=== PATIENT | male | born 1985 | race Caucasian/White ===

== ENCOUNTER 2016-06-10 20:46 | Emergency (ER) | payer OTHER ==
[2016-06-10] MEDS ORDERED: IBUPROFEN 800 MG TAB As Ordered ONE (23:44)
[2016-06-10] MEDS ORDERED: predniSONE 20 MG TAB As Ordered ONE (23:44)
[2016-06-10] MEDS ORDERED: OXYCODONE/APAP 5MG/325MG(BULK) 1 TAB TAB As Ordered ONE (23:45)
--- NOTE | 2016-06-10 23:55 | EDDOCDS ---
Nurse's Notes [facility] Name: Paul Beavers Age: 30 yrs Sex: Male : 1985 Arrival Date: 06/10/2016 Time: 20:46 Bed Triage 3 Private MD: [place] Carli [place] Diagnosis: Low back pain-Acute;Sciatica, left side;Acute pharyngitis Presentation: 06/10 20:52 Presenting complaint: Patient states: PER PT MID & LOWER BACK PAIN FOR THE PAST FEW tm5 DAYS, STATES THAT HE HAS MOVING & HAS BEEN LIFTING HEAVY OBJECTS. Acute neurological deficits are not present. Mechanism of Injury: No Mechanism of Injury. Adult Sepsis Screening: The patient does not have new or worsening altered mentation. Patient's respiratory rate is less than 22. Systolic blood pressure is greater than 100. Patient has a qSOFA score of 0- Negative Sepsis Screen. Suicide/Homicide risk assessment- the patient denies having any suicidal and/or homicidal ideations and does not present with any other emotional, behavioral or mental health complaints. Status: Patient is not a dining service inspector or dependent. Status: RETIRED. Transition of care: patient was not received from another setting of care. 20:52 Acuity: JOSE Level 4 tm5 20:52 Method Of Arrival: Walkin/Carried/Asstd tm5 Triage Assessment: 20:54 General: Appears in no apparent distress, Behavior is appropriate for age, cooperative. tm5 Pain: Location: left low back, left mid back, right mid back and right low back Pain currently is 8 out of 10 on a pain scale. Quality of pain is described as aching, throbbing. Pt Declines HIV testing. Neurological: Level of Consciousness is awake, alert, Oriented to person, place, time. Respiratory: Airway is patent Respiratory effort is even, unlabored, Respiratory pattern is regular, symmetrical. Derm: Skin is pink, warm & dry. normal. Musculoskeletal: Reports pain in left low back, left mid back, right mid back and right low back. Historical: - Allergies: no known allergies; - Home Meds: 1. gabapentin 1200 mg Oral tab 3 times per day - PMHx: L1 L2 herniated discs; - PSHx: BACK SURGERY; - Social history: Smoking status: Patient uses tobacco products, current every day smoker. No barriers to communication noted, The patient speaks fluent Cymraes. - Family history: Not pertinent. - : The pt / caregiver states he / she is not on anticoagulants. Home medication list is obtained from the patient. - Exposure Risk Screening:: None identified. Screenin:55 Screening information is obtained from the patient. Fall risk: No risks identified. tm5 Assistance ADL's: requires no assistance with activities of daily living. Abuse/DV Screen: The patient / caregiver reports he/she is: not in a situation that causes fear, pain or injury. Nutritional screening: No deficits noted. Advance Directives: Currently, there is no health care proxy. There is no active DNR order. home support is adequate. Assessment: 23:53 General: Appears in no apparent distress, comfortable, Behavior is cooperative. [facility] Vital Signs: 20:48 BP 149 / 93; Pulse 112; Resp 18 S; Temp 100.1(O); Pulse Ox 98% on R/A; Weight 117.93 kg gr2 (R); Height 6 ft. 2 in. (187.96 cm) (R); Pain 8/10; 20:48 Body Mass Index 33.38 (117.93 kg, 187.96 cm) gr2 Vitals: 20:48 Log In Time: June 10, 2016 at 20:48. gr2 23:38 Strep Screen is obtained and tested: Negative, a GATSNEG culture is ordered in [facility] and sent. ED Course: 20:48 Patient visited by Alejandro Dunham. gr2 20:48 [facility] is Private Physician. gr2 20:48 Patient moved to Waiting gr2 20:50 Patient visited by Alejandro Dunham. gr2 20:50 Patient moved to Pre RCE gr2 20:53 Triage Initiated tm5 20:54 Family accompanied patient. tm5 23:00 Patient moved to Triage 3 jrd 23:02 Christian[facility]C [facility] ef1 23:02 Delmer Li DO is Attending Physician. ef1 23:03 Patient visited by Christiana Price PA-C. ef1 23:22 Patient visited by Christiana Price PA-C. ef1 23:39 Patient visited by Christiana Price PA-C. ef1 23:39 [facility] is Referral Physician. ef1 23:39 [facility]. ef1 23:52 GATS (NEGATIVE STREP SCREEN) Sent. slm 23:53 No IV's were initiated during this patient's visit. No procedures done that require slm assistance. 23:54 Patient visited by Laura Hunt LPN. slm 23:54 The patient / caregiver is instructed regarding the plan of care and ED course. Patient slm has correct armband on for positive identification. Bed in low position. Call light in reach. Side rails up X 1. Administered Medications: 23:51 Drug: oxyCODONE-acetaminophen 4 pack 1 packets [oxycodone-acetaminophen 5 mg-325 mg slm tablet (1 tabs)] {Co-Signature: af2 (Iveth Roberson RN).} Route: PO; 23:52 Drug: Ibuprofen 800 mg [ibuprofen 800 mg tablet (1 tabs)] Route: PO; slm 23:53 Drug: predniSONE 60 mg [prednisone 20 mg tablet (3 tabs)] Route: PO; slm Order Results: There are currently no results for this order. Outcome: 23:39 Discharge ordered by Provider. ef1 23:53 Discharge Assessment: Patient awake, alert and oriented x 3. No cognitive and/or slm functional deficits noted. Patient verbalized understanding of disposition instructions. patient administered narcotics - no. The following High Risk Discharge criteria are identified: None. Discharged to home ambulatory. Condition: good. Discharge instructions given to patient, Instructed on discharge instructions, follow up and referral plans. medication usage, no driving heavy equipment, Demonstrated understanding of instructions, medications, Pt was receptive of discharge instructions/ teaching. Prescriptions given X 4. No special radiology studies were completed. Property :Personal belongings accompany Pt. 23:54 Patient left the ED. slm Signatures: Christiana Price, VELASQUEZC PADeirdreC ef1 Alejandro Dunham gr2 Laura Hunt LPN LPN slm Branden Foremna, BIOLOGICS SPECIALIST BIOLOGICS SPECIALIST Sonia Purcell,RN RN tm5 Iveth Roberson RN af2 MTDD
--- NOTE | 2016-06-10 23:55 | EDDOCDS ---
Physician Documentation [facility] Name: Paul Beavers Age: 30 yrs Sex: Male : 1985 Arrival Date: 06/10/2016 Time: 20:46 Bed Triage 3 Private MD: [facility], [place] Disposition: 06/10/16 23:39 Discharged to Home/Self Care. Impression: Low back pain - Acute, Sciatica, left side, Acute pharyngitis. - Condition is Stable. - Discharge Instructions: Back Pain, Adult, Yway-lt-Haql, Sciatica, Rtlw-vu-Kqxg, Pharyngitis, Dtjb-[id number]-[id number]. - Prescriptions for Prednisone 20 mg Oral Tablet - take 3 tablet by ORAL route once daily for 5 days; 15 tablet. Zanaflex 4 mg Oral Tablet - take 1 tablet by ORAL route every 8 hours As needed Will cause drowsiness, do not take while driving/operating heavy machinery.; 20 tablet. Mobic 7.5 mg Oral Tablet - take 1 tablet by ORAL route once daily take with food; 20 tablet. Percocet 5- 325 mg Oral Tablet - take 1 tablet by ORAL route every 6 hours As needed MDD: 4 tabs; 20 tablet. - Medication Reconciliation, Local Pharmacy Hours form. - Follow up: [facility]; When: 1 - 2 days; Reason: Recheck today's complaints, Continuance of care. Follow up: Emergency Department; Reason: Worsening of conditions. Follow up: [facility]; When: Call to arrange an appointment; Reason: Further diagnostic work-up, Recheck today's complaints, Continuance of care. - Problem is new. - Symptoms have improved. Historical: - Allergies: no known allergies; - Home Meds: 1. gabapentin 1200 mg Oral tab 3 times per day - PMHx: L1 L2 herniated discs; - PSHx: BACK SURGERY; - Social history: Smoking status: Patient uses tobacco products, current every day smoker. No barriers to communication noted, The patient speaks fluent [place]. - Family history: Not pertinent. - : The pt / caregiver states he / she is not on anticoagulants. Home medication list is obtained from the patient. - Exposure Risk Screening:: None identified. Vital Signs: 06/10 20:48 BP 149 / 93; Pulse 112; Resp 18 S; Temp 100.1(O); Pulse Ox 98% on R/A; Weight 117.93 kg gr2 / 259.99 lbs (R); Height 6 ft. 2 in. (187.96 cm) (R); Pain 8/10; 20:48 Body Mass Index 33.38 (117.93 kg, 187.96 cm) gr2 MDM: 22:10 Spine. Lumbosacral, Complete Ordered. EDMS 23:23 oxyCODONE-acetaminophen 4 pack 5 mg-325 mg 1 packets PO once; Dispense with pt, take as ef1 per instruction on package ordered. 23:23 predniSONE 60 mg PO once; administer with food or milk ordered. ef1 23:25 Strep Screen, Nursing ordered. ef1 23:28 Ibuprofen 800 mg PO once ordered. ef1 23:40 GATS (NEGATIVE STREP SCREEN) Ordered. EDMS Administered Medications: 23:51 Drug: oxyCODONE-acetaminophen 4 pack 1 packets [oxycodone-acetaminophen 5 mg-325 mg slm tablet (1 tabs)] {Co-Signature: af2 (Iveth Roberson RN).} Route: PO; 23:52 Drug: Ibuprofen 800 mg [ibuprofen 800 mg tablet (1 tabs)] Route: PO; slm 23:53 Drug: predniSONE 60 mg [prednisone 20 mg tablet (3 tabs)] Route: PO; slm Signatures: Dispatcher [employer] EDMS Christiana Price, JAKOB ROBERT ef1 Laura Hunt,AMANDA LINER INSTALLER slm Sonia Stone RN RN tm5 Iveth Roberson RN af2 MTDD
--- NOTE | 2016-06-11 02:03 | REP ---
Clinical: Trauma . Technique: AP, lateral, bilateral oblique, and coned-down views. Findings: Alignment and lordosis is maintained. The vertebral bodies including transverse process and spinous processes are intact and normal. There is no evidence for acute fracture / compression injury or subluxation. No evidence for spondylolysis or spondylolisthesis. No significant degenerative change is noted. Impression: Normal lumbosacral spine radiograph series. Signed by Jaime Eid MD 06/11/2016 01:54 A
--- NOTE | 2016-06-13 00:55 | EDDOCDS ---
Nurse's Notes [facility] Name: Paul Beavers Age: 30 yrs Sex: Male : 1985 Arrival Date: 06/10/2016 Time: 20:46 Bed Triage 3 Private MD: [place] Carli Jackson Diagnosis: Low back pain-Acute;Sciatica, left side;Acute pharyngitis Presentation: 06/10 20:52 Presenting complaint: Patient states: PER PT MID & LOWER BACK PAIN FOR THE PAST FEW tm5 DAYS, STATES THAT HE HAS MOVING & HAS BEEN LIFTING HEAVY OBJECTS. Acute neurological deficits are not present. Mechanism of Injury: No Mechanism of Injury. Adult Sepsis Screening: The patient does not have new or worsening altered mentation. Patient's respiratory rate is less than 22. Systolic blood pressure is greater than 100. Patient has a qSOFA score of 0- Negative Sepsis Screen. Suicide/Homicide risk assessment- the patient denies having any suicidal and/or homicidal ideations and does not present with any other emotional, behavioral or mental health complaints. Status: Patient is not a on site services specialist or dependent. Status: RETIRED. Transition of care: patient was not received from another setting of care. 20:52 Acuity: JOSE Level 4 tm5 20:52 Method Of Arrival: Walkin/Carried/Asstd tm5 Triage Assessment: 20:54 General: Appears in no apparent distress, Behavior is appropriate for age, cooperative. tm5 Pain: Location: left low back, left mid back, right mid back and right low back Pain currently is 8 out of 10 on a pain scale. Quality of pain is described as aching, throbbing. Pt Declines HIV testing. Neurological: Level of Consciousness is awake, alert, Oriented to person, place, time. Respiratory: Airway is patent Respiratory effort is even, unlabored, Respiratory pattern is regular, symmetrical. Derm: Skin is pink, warm & dry. normal. Musculoskeletal: Reports pain in left low back, left mid back, right mid back and right low back. Historical: - Allergies: no known allergies; - Home Meds: 1. gabapentin 1200 mg Oral tab 3 times per day - PMHx: L1 L2 herniated discs; - PSHx: BACK SURGERY; - Social history: Smoking status: Patient uses tobacco products, current every day smoker. No barriers to communication noted, The patient speaks fluent Croatian. - Family history: Not pertinent. - : The pt / caregiver states he / she is not on anticoagulants. Home medication list is obtained from the patient. - Exposure Risk Screening:: None identified. Screenin:55 Screening information is obtained from the patient. Fall risk: No risks identified. tm5 Assistance ADL's: requires no assistance with activities of daily living. Abuse/DV Screen: The patient / caregiver reports he/she is: not in a situation that causes fear, pain or injury. Nutritional screening: No deficits noted. Advance Directives: Currently, there is no health care proxy. There is no active DNR order. home support is adequate. Assessment: 23:53 General: Appears in no apparent distress, comfortable, Behavior is cooperative. [facility] Vital Signs: 20:48 BP 149 / 93; Pulse 112; Resp 18 S; Temp 100.1(O); Pulse Ox 98% on R/A; Weight 117.93 kg gr2 (R); Height 6 ft. 2 in. (187.96 cm) (R); Pain 8/10; 20:48 Body Mass Index 33.38 (117.93 kg, 187.96 cm) gr2 Vitals: 20:48 Log In Time: June 10, 2016 at 20:48. gr2 23:38 Strep Screen is obtained and tested: Negative, a GATSNEG culture is ordered in [facility] and sent. ED Course: 20:48 Patient visited by Alejandro Dunham. gr2 20:48 [facility] is Private Physician. gr2 20:48 Patient moved to Waiting gr2 20:50 Patient visited by Alejandro Dunham. gr2 20:50 Patient moved to Pre RCE gr2 20:53 Triage Initiated tm5 20:54 Family accompanied patient. tm5 23:00 Patient moved to Triage 3 jrd 23:02 Christian[facility] Price [facility]-C [facility]. ef1 23:02 Delmer Li DO is Attending Physician. ef1 23:03 Patient visited by Christiana Price PA-C. ef1 23:22 Patient visited by Christiana Price PA-C. ef1 23:39 Patient visited by Christiana Price PA-C. ef1 23:39 [facility] is Referral Physician. ef1 23:39 [facility]. ef1 23:52 GATS (NEGATIVE STREP SCREEN) Sent. slm 23:53 No IV's were initiated during this patient's visit. No procedures done that require slm assistance. 23:54 Patient visited by Laura Hunt LPN. slm 23:54 The patient / caregiver is instructed regarding the plan of care and ED course. Patient slm has correct armband on for positive identification. Bed in low position. Call light in reach. Side rails up X 1. 06/11 02:38 Spine. Lumbosacral, Complete Returned. EDMS 11:03 T-Sheet-- Draft Copy was scanned into [employer] and attached to record. gb Administered Medications: 06/10 23:51 Drug: oxyCODONE-acetaminophen 4 pack 1 packets [oxycodone-acetaminophen 5 mg-325 mg slm tablet (1 tabs)] {Co-Signature: af2 (Iveth Roberson RN).} Route: PO; 23:52 Drug: Ibuprofen 800 mg [ibuprofen 800 mg tablet (1 tabs)] Route: PO; slm 23:53 Drug: predniSONE 60 mg [prednisone 20 mg tablet (3 tabs)] Route: PO; slm Order Results: Lab Order: GATS (NEGATIVE STREP SCREEN); SPEC'M 06/10/16 23:57 Test: GATS CULTURE (NEG STREP SCR); Value: GATS RESULT NEGATIVE FOR STREP PYOGENES (GROUP A); Status: F Radiology Order: Spine. Lumbosacral, Complete Test: Spine. Lumbosacral, Complete REASON FOR EXAMINATION: Trauma; Clinical: Trauma .; ; Technique: AP, lateral, bilateral oblique, and coned-down views.; ; Findings: Alignment and lordosis is maintained. The vertebral bodies including; transverse process and spinous processes are intact and normal. There is no; evidence for acute fracture / compression injury or subluxation. No evidence for; spondylolysis or spondylolisthesis. No significant degenerative change is; noted.; ; Impression:; Normal lumbosacral spine radiograph series.; ; ; Signed by; Jaime Eid MD 06/11/2016 01:54 A; Outcome: 23:39 Discharge ordered by Provider. ef1 23:53 Discharge Assessment: Patient awake, alert and oriented x 3. No cognitive and/or slm functional deficits noted. Patient verbalized understanding of disposition instructions. patient administered narcotics - no. The following High Risk Discharge criteria are identified: None. Discharged to home ambulatory. Condition: good. Discharge instructions given to patient, Instructed on discharge instructions, follow up and referral plans. medication usage, no driving heavy equipment, Demonstrated understanding of instructions, medications, Pt was receptive of discharge instructions/ teaching. Prescriptions given X 4. No special radiology studies were completed. Property :Personal belongings accompany Pt. 23:54 Patient left the ED. slm Signatures: Dispatcher [employer] EDMS Beverly Islas, Reg Reg gb Christiana Price, PADeirdreC PADeirdreC ef1 Alejandro Dunham gr2 Laura Hunt LPN LPN slm Branden Foreman, MEDICAL RECORD CONSULTANT MEDICAL RECORD CONSULTANT Sonia Purcell,LAN RN tm5 Iveth Roberson RN af2 Chart Complete GERONIMO
--- NOTE | 2016-06-13 00:55 | EDDOCDS ---
Physician Documentation [facility] Name: Paul Beavers Age: 30 yrs Sex: Male : 1985 Arrival Date: 06/10/2016 Time: 20:46 Bed Triage 3 Private MD: [facility] [place] Disposition: 06/10/16 23:39 Discharged to Home/Self Care. Impression: Low back pain - Acute, Sciatica, left side, Acute pharyngitis. - Condition is Stable. - Discharge Instructions: Back Pain, Adult, Fvrf-ff-Stze, Sciatica, Buft-dc-Zfnc, Pharyngitis, Hmqc-pc-Ybkb. - Prescriptions for Prednisone 20 mg Oral Tablet - take 3 tablet by ORAL route once daily for 5 days; 15 tablet. Zanaflex 4 mg Oral Tablet - take 1 tablet by ORAL route every 8 hours As needed Will cause drowsiness, do not take while driving/operating heavy machinery.; 20 tablet. Mobic 7.5 mg Oral Tablet - take 1 tablet by ORAL route once daily take with food; 20 tablet. Percocet 5- 325 mg Oral Tablet - take 1 tablet by ORAL route every 6 hours As needed MDD: 4 tabs; 20 tablet. - Medication Reconciliation, Local Pharmacy Hours form. - [facility]; When: 1 - 2 days; Reason: Recheck today's complaints, Continuance of care. Follow up: Emergency Department; Reason: Worsening of conditions. Follow up: [facility]; When: Call to arrange an appointment; Reason: Further diagnostic work-up, Recheck today's complaints, Continuance of care. - Problem is new. - Symptoms have improved. Historical: - Allergies: no known allergies; - Home Meds: 1. gabapentin 1200 mg Oral tab 3 times per day - PMHx: L1 L2 herniated discs; - PSHx: BACK SURGERY; - Social history: Smoking status: Patient uses tobacco products, current every day smoker. No barriers to communication noted, The patient speaks fluent [place] Korean. - Family history: Not pertinent. - : The pt / caregiver states he / she is not on anticoagulants. Home medication list is obtained from the patient. - Exposure Risk Screening:: None identified. Vital Signs: 06/10 20:48 BP 149 / 93; Pulse 112; Resp 18 S; Temp 100.1(O); Pulse Ox 98% on R/A; Weight 117.93 kg gr2 / 259.99 lbs (R); Height 6 ft. 2 in. (187.96 cm) (R); Pain 8/10; 20:48 Body Mass Index 33.38 (117.93 kg, 187.96 cm) gr2 MDM: 22:10 Spine. Lumbosacral, Complete Ordered. EDMS 23:23 oxyCODONE-acetaminophen 4 pack 5 mg-325 mg 1 packets PO once; Dispense with pt, take as ef1 per instruction on package ordered. 23:23 predniSONE 60 mg PO once; administer with food or milk ordered. ef1 23:25 Strep Screen, Nursing ordered. ef1 23:28 Ibuprofen 800 mg PO once ordered. ef1 23:40 GATS (NEGATIVE STREP SCREEN) Ordered. EDMS 06/11 11:03 T-Sheet-- Draft Copy was scanned into [employer] and attached to record. gb Administered Medications: 06/10 23:51 Drug: oxyCODONE-acetaminophen 4 pack 1 packets [oxycodone-acetaminophen 5 mg-325 mg slm tablet (1 tabs)] {Co-Signature: af2 (Iveth Roberson RN).} Route: PO; 23:52 Drug: Ibuprofen 800 mg [ibuprofen 800 mg tablet (1 tabs)] Route: PO; slm 23:53 Drug: predniSONE 60 mg [prednisone 20 mg tablet (3 tabs)] Route: PO; slm Signatures: Dispatcher [employer] EDMS Beverly Islas, Reg Reg gb Christiana Price, PADeirdreC PAJessica ef1 Laura Hunt LPN AWAKE OVERNIGHT MONITOR slm Sonia Stone RN RN tm5 Iveth Roberson RN af2 The chart was reviewed and I authenticate all verbal orders and agree with the evaluation and treatment provided.Attachments: 06/11 11:03 T-Sheet-- Draft Copy gb Chart Complete MTDD
--- NOTE | 2016-06-13 00:55 | EDDOCDS ---
Physician Documentation [facility] Name: Paul Beavers Age: 30 yrs Sex: Male : 1985 Arrival Date: 06/10/2016 Time: 20:46 Bed Triage 3 Private MD: [facility], [place] Disposition: 06/10/16 23:39 Discharged to Home/Self Care. Impression: Low back pain - Acute, Sciatica, left side, Acute pharyngitis. - Condition is Stable. - Discharge Instructions: Back Pain, Adult, Ynhs-jy-Saqs, Sciatica, Yybe-lv-Xubd, Pharyngitis, Pcfs-zo-Lfvd. - Prescriptions for Prednisone 20 mg Oral Tablet - take 3 tablet by ORAL route once daily for 5 days; 15 tablet. Zanaflex 4 mg Oral Tablet - take 1 tablet by ORAL route every 8 hours As needed Will cause drowsiness, do not take while driving/operating heavy machinery.; 20 tablet. Mobic 7.5 mg Oral Tablet - take 1 tablet by ORAL route once daily take with food; 20 tablet. Percocet 5- 325 mg Oral Tablet - take 1 tablet by ORAL route every 6 hours As needed MDD: 4 tabs; 20 tablet. - Medication Reconciliation, Local Pharmacy Hours form. - Follow up: [facility]; When: 1 - 2 days; Reason: Recheck today's complaints, Continuance of care. Follow up: Emergency Department; Reason: Worsening of conditions. Follow up: [facility]; When: Call to arrange an appointment; Reason: Further diagnostic work-up, Recheck today's complaints, Continuance of care. - Problem is new. - Symptoms have improved. Historical: - Allergies: no known allergies; - Home Meds: 1. gabapentin 1200 mg Oral tab 3 times per day - PMHx: L1 L2 herniated discs; - PSHx: BACK SURGERY; - Social history: Smoking status: Patient uses tobacco products, current every day smoker. No barriers to communication noted, The patient speaks fluent Nigerien. - Family history: Not pertinent. - : The pt / caregiver states he / she is not on anticoagulants. Home medication list is obtained from the patient. - Exposure Risk Screening:: None identified. Vital Signs: 06/10 20:48 BP 149 / 93; Pulse 112; Resp 18 S; Temp 100.1(O); Pulse Ox 98% on R/A; Weight 117.93 kg gr2 / 259.99 lbs (R); Height 6 ft. 2 in. (187.96 cm) (R); Pain 8/10; 20:48 Body Mass Index 33.38 (117.93 kg, 187.96 cm) gr2 MDM: 22:10 Spine. Lumbosacral, Complete Ordered. EDMS 23:23 oxyCODONE-acetaminophen 4 pack 5 mg-325 mg 1 packets PO once; Dispense with pt, take as ef1 per instruction on package ordered. 23:23 predniSONE 60 mg PO once; administer with food or milk ordered. ef1 23:25 Strep Screen, Nursing ordered. ef1 23:28 Ibuprofen 800 mg PO once ordered. ef1 23:40 GATS (NEGATIVE STREP SCREEN) Ordered. EDMS 06/11 11:03 T-Sheet-- Draft Copy was scanned into [employer] and attached to record. gb Administered Medications: 06/10 23:51 Drug: oxyCODONE-acetaminophen 4 pack 1 packets [oxycodone-acetaminophen 5 mg-325 mg slm tablet (1 tabs)] {Co-Signature: af2 (Iveth Roberson RN).} Route: PO; 23:52 Drug: Ibuprofen 800 mg [ibuprofen 800 mg tablet (1 tabs)] Route: PO; slm 23:53 Drug: predniSONE 60 mg [prednisone 20 mg tablet (3 tabs)] Route: PO; slm Signatures: Dispatcher [employer] EDMS Beverly Islas, Reg Reg gb Christiana Price, PADeirdreC PAJessica ef1 Laura Hunt LPN TOP STOP ATTACHER slm Sonia Stone RN RN tm5 Iveth Roberson RN af2 The chart was reviewed and I authenticate all verbal orders and agree with the evaluation and treatment provided.Attachments: 06/11 11:03 T-Sheet-- Draft Copy gb Chart Complete MTDD
== END 2016-06-10 23:54 | disposition home or self-care (01) ==
LOC: M ED 20:46
DX: M54.32 Sciatica, left side (principal); J02.9 Acute pharyngitis, unspecified; M51.9 Unspecified thoracic, thoracolumbar and lumbosacral intervertebral disc disorder; F17.210 Nicotine dependence, cigarettes, uncomplicated; Z79.899 Other long term (current) drug therapy